=== PATIENT | female | born 1955 | race Caucasian/White ===

== ENCOUNTER 2023-05-06 08:38 | Outpatient (CLI) | payer MEDICARE, SELFPAY ==
--- NOTE | 2023-05-06 09:15 | CRLHL7_ITS ---
For Patients: As a result of the Century Cures Act, medical imaging exams and procedure reports are released immediately into your electronic medical record. You may view this report before your referring provider. If you have questions, please contact your health care provider. Technique: Double-contrast esophagram performed after the uneventful administration of effervescent crystals and thick barium followed by thin barium. Fluoroscopy time 1 minute 6 seconds. Indication: Dysphagia Comparison: None. Findings: Mucosal irregularity is present within the mid and distal esophagus. No obstruction. No achalasia. Tiny sliding hiatal hernia. Swallowing mechanism normal. Decreased esophageal motility. Spontaneous reflux. Impression: Spontaneous reflux with decreased esophageal motility and tiny sliding hiatal hernia. Reflux esophagitis involving the mid and distal esophagus. EGD recommended for further evaluation of the midesophageal region. Dictated by Edward Frazier MD @ 05/06/2023 10:10:57 AM (Electronically Signed)
== END 2023-05-06 08:39 | disposition home or self-care (01) ==
PROVIDERS: PCP Family Medicine; Visit Provider Internal Medicine Gastroenterology
DX: R13.10 Dysphagia, unspecified (principal); R10.13 Epigastric pain; K21.9 Gastro-esophageal reflux disease without esophagitis; K21.00 Gastro-esophageal reflux disease with esophagitis, without bleeding
CPT/HCPCS: 74221

== ENCOUNTER 2023-07-13 12:19 | Emergency (ER) | payer MEDICARE, SELFPAY ==
[2023-07-13 12:33] VITALS: BP 102/63; PULSE 90; RESP 18; TEMP 36.9; O2SAT 97; BMI 28.3
--- NOTE | 2023-07-13 13:02 | ED.GENADULT ---
HPI - General Adult General Chief complaint: Cough Stated complaint: Bronchitis flare up Time Seen by Provider: 07/13/23 12:22 History of Present Illness HPI narrative: Patient is a pleasant 68 year white female with history of chronic bronchitis/COPD who typically gets this once a year and gets it in the fall and winter. She was very sensitive to mold and she was out picking apples and feels like that exacerbated her symptoms. She has had a cough, congestion, and typically takes cefdinir and prednisone. Does have penicillin allergy but she has tolerated cefdinir well in the past and is sensitive other medications. She feels no marked shortness of breath, or O2 sat here is excellent at 97%. She has no chest pain. She has run out of her albuterol inhaler as well and needs that refilled. Related Data Home Medications Medication Instructions Recorded Confirmed albuterol sulfate 90 mcg/actuation g inhalation 11/30/22 11/30/22 aerosol inhaler bupropion HCl 150 mg 24 hr tablet, tab PO 11/30/22 11/30/22 extended release escitalopram oxalate 10 mg tablet 10 mg PO 11/30/22 11/30/22 levothyroxine 112 mcg tablet 112 mcg PO 11/30/22 11/30/22 Previous Rx's Medication Instructions Recorded albuterol sulfate 90 mcg/actuation 2 puff inhalation QID PRN 07/13/23 aerosol inhaler shortness of breath or wheezing #8.5 grams cefdinir 300 mg capsule 300 mg PO BID 10 days #20 caps 07/13/23 prednisone 20 mg tablet 20 mg PO BID #10 tabs 07/13/23 Allergies Allergy/AdvReac Type Severity Reaction Status Date / Time diazepam [From Valium] Allergy Severe Agitated Verified 01/26/23 14:20 erythromycin base Allergy Severe Headache Verified 01/26/23 14:20 Penicillins Allergy Severe Anaphylaxis Verified 01/26/23 14:20 Review of Systems Status of ROS: Reports: 6 or more systems reviewed and unremarkable except as noted in History and below [facility] Social History Smoking Status: Former smoker Non-prescribed substance use: denies use Exam Narrative: Exam Narrative: Objective: Vital signs look within normal limits, O2 sat is 97% on room air HEENT is unremarkable noncyanotic Neck is supple Chest some basilar wheezes that clear with deep breathing bilaterally Pulses regular Good peripheral perfusion noted, neurologic nonfocal. Const: Vital Signs, click to edit/add: Vital Signs - 24 hr 07/13/23 12:33 Temperature 98.4 F Pulse Rate [Pulse Oximeter] 90 Respiratory Rate 18 Blood Pressure [Ri ght Upper Arm] 102/63 Pulse Oximetry 97 Course Vital Signs Vital signs: Initial Vital Signs Temperature 98.4 F 07/13/23 12:33 Temperature Source Temporal Artery Scan 07/13/23 12:33 Pulse Rate 90 07/13/23 12:33 Respiratory Rate 18 07/13/23 12:33 Blood Pressure 102/63 07/13/23 12:33 Blood Pressure Mean 76 07/13/23 12:33 Pulse Oximetry 97 07/13/23 12:33 Vital Signs Temperature 98.4 F 07/13/23 12:33 Pulse Rate 90 07/13/23 12:33 Respiratory Rate 18 07/13/23 12:33 Blood Pressure 102/63 07/13/23 12:33 Pulse Oximetry 97 07/13/23 12:33 Temperature 98.4 F 07/13/23 12:33 Pulse Rate 90 07/13/23 12:33 Respiratory Rate 18 07/13/23 12:33 Blood Pressure 102/63 07/13/23 12:33 Pulse Oximetry 97 07/13/23 12:33 Medical Decision Making MDM Narrative Medical decision making narrative: [age] year white female with chronic bronchitis/COPD with flare of symptoms, patient typically responds well to antibiotic steroid and inhaler. These will be prescribed. Recheck with regular doctor next 2-3 days not improving changes concerns worsening. At this point I do not think further workup such as x-rays appropriate as she has fairly typical exacerbations symptoms. I think this would be a reasonable course of action at this time given her prior response. Discharge Plan Discharge Clinical Impression: COPD (chronic obstructive pulmonary disease) Patient Disposition: Home, Self-Care Condition: Stable Additional Instructions: Light activity, prednisone and cefdinir as prescribed. Albuterol inhaler 2 puffs q.i.d. p.r.n., follow up the regular doctor next couple of days not improving return to ED sooner worsening or problems or concerns. Activity Level: Light activity Discharge Diet: Regular Prescriptions: New prednisone 20 mg tablet 20 mg PO BID Qty: 10 0RF cefdinir 300 mg capsule 300 mg PO BID 10 Days Qty: 20 0RF albuterol sulfate 90 mcg/actuation HFA aerosol inhaler 2 puff inhalation QID PRN (Reason: shortness of breath or wheezing) Qty: 8.5 0RF No Action levothyroxine 112 mcg tablet 112 mcg PO albuterol sulfate 90 mcg/actuation HFA aerosol inhaler inhalation bupropion HCl 150 mg tablet extended release 24 hr PO escitalopram oxalate 10 mg tablet 10 mg PO Follow Up/Referrals: Jordon Davila MD [Primary Care Provider] - Stand Alone Forms: [employer] ([employer]) Info Instructions
[2023-07-13] MEDS: predniSONE 10 MG TABLET 50 MG PO (13:28)
== END 2023-07-13 13:31 | disposition home or self-care (01) ==
PROVIDERS: Emergency Provider Family Medicine; PCP Family Medicine
DX: J44.9 Chronic obstructive pulmonary disease, unspecified (principal)
CPT/HCPCS: 99283; J7512